=== PATIENT | female | born 1995 | race Caucasian/White ===

== ENCOUNTER 2017-08-19 11:50 | Outpatient (CLI) | payer MEDICAID, SELFPAY ==
[2017-08-19 12:08] VITALS: BMI 30.7
[2017-08-19] MEDS: Betamethasone/Betamethasone 30 MG/5 ML Vial 12 MG IM (12:25)
[2017-08-19] MEDS: Lactated Ringers 1,000 ML 200 ML IV (12:43)
[2017-08-19 13:00] LABS: Mucous, Urine 0 SEEN /hpf (<or=2+)
[2017-08-19 13:08] LABS: Hematocrit 31.4 % (37-47); Hemoglobin 10.3 g/dl (12.0-15.0); Mean Corp Hgb Conc 32.8 g/gl (32-36); Mean Corpuscular Hgb 28.9 pg (27.0-32.0); Mean Corpuscular Volume 88.2 fL (81-99); Mean Platelet Vol. 11.5 fl (6.2-12.0); Platelet Count 186 K/mm3 (150-450); RBC Distribution Width CV 13.2 % (11.6-14.6); RBC Distribution Width SD 42.7 fl (35.1-43.9); Red Blood Count 3.56 M/mm3 (4.2-5.4); White Blood Count 11.6 K/mm3 (4.4-11.0)
[2017-08-19 13:10] LABS: Color, Urine Straw (Yellow); Glucose, Dipstick Normal (Normal); Ketone-Dipstick Negative (Negative); Leukocyte Esterase-Dipstick 25 /ul (Negative); Nitrite-Dipstick Negative (Negative); Occult Blood-Urine Negative /ul (Negative); Protein-Dipstick 15 mg/dl (Negative); Specific Gravity, Urine 1.005 (1.002-1.030); Urine Bilirubin Dipstick Negative (Negative); Urine Clarity Sl. Cloudy (Clear); Urine Urobilinogen Normal (Normal)
[2017-08-19] MEDS: Magnesium Sulfate 20 GM/500 ML BAG IV (13:15)
[2017-08-19 13:19] LABS: Bacteria RARE /hpf (None Seen); Red Blood Cells-Urine 0-5 SEEN /hpf (0-5); Squamous Epithelial Cells - UA 0-5 SEEN /hpf (5-10); White Blood Cells 0-5 SEEN /hpf (0-5)
[2017-08-19 13:20] LABS: AST(SGOT) 69 U/L (15-37); Alanine Aminotransfer ALT/SGPT 49 U/L (13-56); Creatinine, Serum 0.63 mg/dL (0.55-1.02); EST Glomerular Filtration Rate 124 mL/min (>60); Est Glom Filt Rate - Afr Amer 150 mL/min (>60); Uric Acid 4.6 mg/dL (2.6-6.0)
[2017-08-19 13:23] LABS: Amphetamine Urine VISTA NEGATIVE (<1000 ng/mL); Barbiturate Urine VISTA NEGATIVE (< 200 ng/mL); Benzodiazepine Urine VISTA NEGATIVE (< 200 ng/mL); Cocaine Urine VISTA NEGATIVE (< 300 ng/mL); Ecstacy Urine VISTA NEGATIVE (< 500 ng/mL); Methadone Urine VISTA NEGATIVE (< 300 ng/mL); PCP Urine VISTA NEGATIVE (< 25 ng/mL); Protein:Creat Ratio 415 mg/g CRE (0-200); THC Urine VISTA NEGATIVE (< 50 ng/mL); Vista UDS pH Range 7
[2017-08-19 13:27] LABS: Scan Indicated on CBC? Y/N NO
[2017-08-19] MEDS: NIFEdipine 30 MG Tablet PO (14:21)
--- NOTE | 2017-08-19 14:38 | US_ITS ---
STUDY: SECOND AND THIRD TRIMESTER OBSTETRICAL ULTRASOUND - LIMITED REASON FOR EXAM: Female, 22 years old. growth LMP: PRIOR ULTRASOUND: 1.24.18. TECHNIQUE: Transabdominal ultrasound evaluation was performed. FINDINGS: There is a single intrauterine fetus. The fetus is in a cephalic presentation. There is demonstrated cardiac activity with a heart rate of 130 bpm. There is a normal amniotic fluid volume. The largest amniotic fluid pocket measures 3.9 cm. The amniotic fluid index (PRESLEY) is 12.8 cm. The placenta is posterior in location and is not low lying. There are Grade 3 placental changes. The cervix measures 4.3 cm in length. BIOMETRY: BPD: 86mm: 34 weeks, 4 days HC: 311mm: 34 weeks, 6 days AC: 300mm: 34 weeks, 0 days FL: 63mm: 32 weeks, 6 days Age by LMP: 33 weeks, 1 days. MOUSTAPHA by LMP: 4.1.18. age by prior US: 34 weeks, 0 days. MOUSTAPHA by prior US: 3.26.18. age by current US: 34 weeks, 1 days. MOUSTAPHA by current US: 3.25.18. Estimated weight: 2270 grams, +/- 331 grams, 61 percentile. US/OB Limited With Biometrics IMPRESSION: There is a single live intrauterine with a heart rate of 130 bpm. age by current US: 34 weeks, 1 days. MOUSTAPHA by current US: 3.25.18. anatomy scan was not performed. Electronically Signed: Farhat Lott MD at 16:21 EST , Service support ,
[2017-08-19 15:47] LABS: Group B Strep DNA By PCR POSITIVE (Negative); Probe Check PASS
--- NOTE | 2017-08-19 16:56 | PCM.HP.OB ---
- Problem List (1) Severe preeclampsia Status: Acute (2) Threatened labor Status: Acute (3) UTI in Status: Acute (4) Anemia in preg-unspec Status: Acute (5) History of pre-eclampsia in prior , currently Status: Acute Comment: baby ASA daily History Date of Admission: 08/19/17 Final MOUSTAPHA: 10/06/17 Gestational age: 33 Weeks and 1 Days History of this : 22 yo @ 33 weeks presetns with severely elevated blood pressures and upper abdominal pain. She has also had contractions throughout the day today. She has missed several visits and never took an antibiotic for a recent UTI. She denies any stds or drug use. she dneie sany headcahes or change in vision. Pertinent Past Medical History: preeclampsia, anxiety/depression PSH: none OB history reviewed previous vaginal deliveries preeclampsia labs: see lab section Allergies amoxicillin [Amoxicillin] Allergy (Verified 08/19/17 13:43) Hives cephalexin [Cephalexin] Allergy (Verified 08/19/17 13:43) Hives Penicillins Allergy (Verified 08/19/17 13:43) Hives Current Medications Calcium Gluconate () 1 gm IV X1 PRN PRN Reason: MAGNESIUM TOXICITY Hydralazine HCl (Apresoline) 10 mg IV X1 PRN; Protocol PRN Reason: BP>160/110mmHg Magnesium Sulfate (20gm/500ml) 20 gm in 500 mls @ 50 mls/hr IV .Q10H [facility] PRN Reason: 2 GM/HR Last Admin: 08/19/17 13:15 Dose: 50 mls/hr Gentamicin Sulfate 300 mg/ (Dextrose) 57.5 mls @ 100 mls/hr IVPB Q24H [facility] Last Admin: 08/19/17 14:47 Dose: 100 mls/hr Labetalol HCl (Trandate) 20 - 40 mg IV Q10M PRN PRN; Protocol PRN Reason: BP>160/110mmHg Last Admin: 08/19/17 12:43 Dose: 20 mg Magnesium Sulfate (4 Gm/100 Ml) 2 gm IV X1 PRN PRN Reason: SEIZURE Midazolam HCl (Versed) 2 mg IV Q5M PRN PRN Reason: SEIZURE Nifedipine (Procardia Xl) 30 mg PO DAILY [facility] Last Admin: 08/19/17 14:21 Dose: 30 mg Smoking Status: Current every day smoker Alcohol: None Drug Use: none Number of Fetus(es): 1 - 140s moderate variability reactive no decels toco q 2-3 minutes Review of Systems Constitutional: Denies: Chills, Fever, Weight Change HEENT: Denies: Head Aches, Sinus Congestion, Sinus Drainage Cardiovascular: Denies: Chest Pain, Palpitations Respiratory: Denies: Cough, Shortness of breath at rest, Sputum production Gastrointestinal: Reports: Abdominal Pain Genitourinary: Denies: Dysuria Gynecological: Denies: Vaginal bleeding, Vaginal discharge Neurological: Denies: Blurred vision, Double vision Physical Exam General: Alert, Oriented x3, No apparent distress Cardiovascular: Regular rate Lungs: Normal air movement Abdomen: Soft, Gravid, Appropriate for Gestational Age Extremities:: No edema, Deep tendon reflexes - 3+, Other - no clonus Estimated gestational size: Appropriate for gestational size Presentation: Cephalic Cervix Dilation (cm): 2.5 Station: -3 Effacement (%): 40 Assessment/Plan Active and Suspected Problems (Last Reviewed 07/24/17 @ 09:19 by Oneyda Jacobson) Severe preeclampsia (Acute) Threatened labor (Acute) 22 yo @33 weeks presents with severe preeclampsia 1. check preeclampsia labs- start magnesium and hypertensive protocol with labetalol. 2. threatened PTL- procardia XL 30 mg, no cervical change, urine gc chlamydia, gbs dna 3. prematurity- BMZ 4. untreated recent UTI- based on sensitivities give gentamicin IV. 5. noncompliant with care- urine tox screen
--- NOTE | 2017-08-19 17:03 | HP.PCM_ITS ---
- Problem List (1) Severe preeclampsia Status: Acute (2) Threatened labor Status: Acute (3) UTI in Status: Acute (4) Anemia in preg-unspec Status: Acute (5) History of pre-eclampsia in prior , currently Status: Acute Comment: baby ASA daily History Date of Admission: 08/19/17 Final MOUSTAPHA: 10/06/17 Gestational age: 33 Weeks and 1 Days History of this : 22 yo @ 33 weeks presetns with severely elevated blood pressures and upper abdominal pain. She has also had contractions throughout the day today. She has missed several visits and never took an antibiotic for a recent UTI. She denies any stds or drug use. she dneie sany headcahes or change in vision. Pertinent Past Medical History: preeclampsia, anxiety/depression PSH: none OB history reviewed previous vaginal deliveries preeclampsia labs: see lab section Allergies amoxicillin [Amoxicillin] Allergy (Verified 08/19/17 13:43) Hives cephalexin [Cephalexin] Allergy (Verified 08/19/17 13:43) Hives Penicillins Allergy (Verified 08/19/17 13:43) Hives Current Medications Calcium Gluconate () 1 gm IV X1 PRN PRN Reason: MAGNESIUM TOXICITY Hydralazine HCl (Apresoline) 10 mg IV X1 PRN; Protocol PRN Reason: BP>160/110mmHg Magnesium Sulfate (20gm/500ml) 20 gm in 500 mls @ 50 mls/hr IV .Q10H [facility] PRN Reason: 2 GM/HR Last Admin: 08/19/17 13:15 Dose: 50 mls/hr Gentamicin Sulfate 300 mg/ (Dextrose) 57.5 mls @ 100 mls/hr IVPB Q24H [facility] Last Admin: 08/19/17 14:47 Dose: 100 mls/hr Labetalol HCl (Trandate) 20 - 40 mg IV Q10M PRN PRN; Protocol PRN Reason: BP>160/110mmHg Last Admin: 08/19/17 12:43 Dose: 20 mg Magnesium Sulfate (4 Gm/100 Ml) 2 gm IV X1 PRN PRN Reason: SEIZURE Midazolam HCl (Versed) 2 mg IV Q5M PRN PRN Reason: SEIZURE Nifedipine (Procardia Xl) 30 mg PO DAILY [facility] Last Admin: 08/19/17 14:21 Dose: 30 mg Smoking Status: Current every day smoker Alcohol: None Drug Use: none Number of Fetus(es): 1 - 140s moderate variability reactive no decels toco q 2- 3 minutes Review of Systems Constitutional: Denies: Chills, Fever, Weight Change HEENT: Denies: Head Aches, Sinus Congestion, Sinus Drainage Cardiovascular: Denies: Chest Pain, Palpitations Respiratory: Denies: Cough, Shortness of breath at rest, Sputum production Gastrointestinal: Reports: Abdominal Pain Genitourinary: Denies: Dysuria Gynecological: Denies: Vaginal bleeding, Vaginal discharge Neurological: Denies: Blurred vision, Double vision Physical Exam General: Alert, Oriented x3, No apparent distress Cardiovascular: Regular rate Lungs: Normal air movement Abdomen: Soft, Gravid, Appropriate for Gestational Age Extremities:: No edema, Deep tendon reflexes - 3+, Other - no clonus Estimated gestational size: Appropriate for gestational size Presentation: Cephalic Cervix Dilation (cm): 2.5 Station: -3 Effacement (%): 40 Assessment/Plan Active and Suspected Problems (Last Reviewed 07/24/17 @ 09:19 by Oneyda Jacobson) Severe preeclampsia (Acute) Threatened labor (Acute) 22 yo @33 weeks presents with severe preeclampsia 1. check preeclampsia labs- start magnesium and hypertensive protocol with labetalol. 2. threatened PTL- procardia XL 30 mg, no cervical change, urine gc chlamydia, gbs dna 3. prematurity- BMZ 4. untreated recent UTI- based on sensitivities give gentamicin IV. 5. noncompliant with care- urine tox screen
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
[2017-08-19 17:21] LABS: Chlamydia Trachomatis by PCR Negative (Negative); Neisserai gonorrhoeae by PCR Negative (Negative); Probe Check PASS; Sample Adequacy Control PASS; Specimen Processing Control PASS
[2017-08-19 17:30] LABS: Red Blood Count 3.88 M/mm3 (4.2-5.4); White Blood Count 15.2 K/mm3 (4.4-11.0)
[2017-08-19 17:31] LABS: Hematocrit 34.2 % (37-47); Hemoglobin 11.2 g/dl (12.0-15.0); Mean Corp Hgb Conc 32.7 g/gl (32-36); Mean Corpuscular Hgb 28.9 pg (27.0-32.0); Mean Corpuscular Volume 88.1 fL (81-99); Platelet Count 174 K/mm3 (150-450); RBC Distribution Width CV 13.5 % (11.6-14.6); RBC Distribution Width SD 42.9 fl (35.1-43.9); Scan Indicated on CBC? Y/N NO
[2017-08-19 18:06] LABS: ALB/GLOB Ratio 0.5 RATIO (0.9-2.4); AST(SGOT) 90 U/L (15-37); Alanine Aminotransfer ALT/SGPT 62 U/L (13-56); Albumin, Serum 2.7 g/dL (3.2-5.0); Alkaline Phosphatase 157 U/L (45-117); Anion Gap 13 (5-15); BUN 8 mg/dL (7-18); BUN/Creat Ratio 12.4 RATIO (10-20); Calcium,Total 7.8 mg/dL (8.5-10.1); Chloride 104 mmol/L (98-107); Creatinine, Serum 0.64 mg/dL (0.55-1.02); EST Glomerular Filtration Rate 120 mL/min (>60); Est Glom Filt Rate - Afr Amer 145 mL/min (>60); Estimated Creatinine Clearance 126.89 ml/min; Glucose 70 mg/dL (74-106); Protein, Total 7.7 g/dL (6.4-8.2); Sodium Level 136 mmol/L (136-145)
--- NOTE | 2017-08-19 18:37 | PCM.PN.BLA ---
Progress Note repeat liver enzymes still elevated- patient in HELLP syndrome recommend immediate transport and will likely plan for delivery. discussed with MFM and will transport to [facility]. FHTs 130s moderate variability reactive no decels. toco no regular ctx. 2-/-2 urine tox screen negative
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
== END 2017-08-19 19:05 | disposition short-term general hospital (02) ==
LOC: WPOUT 11:54 → WP 11:55
PROVIDERS: Visit Provider Obstetrics & Gynecology
DX: O14.23 HELLP syndrome (HELLP), third trimester (principal); O60.03 Preterm labor without delivery, third trimester; O23.43 Unspecified infection of urinary tract in pregnancy, third trimester; O99.013 Anemia complicating pregnancy, third trimester; D64.9 Anemia, unspecified; O09.33 Supervision of pregnancy with insufficient antenatal care, third trimester; O26.893 Other specified pregnancy related conditions, third trimester; R10.10 Upper abdominal pain, unspecified; O99.333 Smoking (tobacco) complicating pregnancy, third trimester; F17.200 Nicotine dependence, unspecified, uncomplicated; O99.343 Other mental disorders complicating pregnancy, third trimester; F32.9 Major depressive disorder, single episode, unspecified; F41.9 Anxiety disorder, unspecified; Z87.59 Personal history of other complications of pregnancy, childbirth and the puerperium; Z3A.33 33 weeks gestation of pregnancy
CPT/HCPCS: 96365; 96366 ×5; 96367; 96375; 36415; 59025; 59050; 76816; 80053; 80307; 81001; 82565; 82570; 84156; 84450; 84460; 84550; 85027; 86850; 86900; 87086; 87088; 87491; 87591; 87653; 96372; 99218; J7120; G0378; J0702

== ENCOUNTER → 2017-10-08 15:06 | Outpatient (CLI) | payer MEDICAID, SELFPAY ==
[2017-10-13 13:23] LABS: HPV Reflexed? NOT INDICATED
== END ==
PROVIDERS: Visit Provider Obstetrics & Gynecology
DX: Z12.4 Encounter for screening for malignant neoplasm of cervix (principal)
CPT/HCPCS: 88175; G0145

== ENCOUNTER 2019-02-02 17:17 | Emergency (ER) | payer MEDICAID, SELFPAY ==
[2019-02-02 17:19] VITALS: BP 127/71; PULSE 87; RESP 18; TEMP 37.1; O2SAT 99; BMI 30.7
[2019-02-02 17:40] VITALS: TEMP 37.4
--- NOTE | 2019-02-02 17:57 | ED.VISSUMM ---
- ER Visit Summary Date of Service: 02/02/19 Chief Complaint: Right flank and abdominal pain History of Present Illness: The patient is a 23 F as male history of anemia, asthma and depression anxiety. Patient states since yesterday morning she has had right Sided flank and abdominal pain. Associated nausea and vomiting. No fever. No chills. No vaginal bleeding or discharge. She has a Mirena IUD. Her last menstrual period was 2 months ago. She denies any UTI symptoms but says she is felt like this before with a UTI. She denies dysuria, urgency or frequency. No gross hematuria. She denies any abdominal trauma. She is never had any surgeries of any type. Physical Examination: 23-year-old female no acute distress. Vital signs are stable afebrile. HEENT exam unremarkable. Neck nontender. Lungs clear to auscultation bilaterally. Heart regular rhythm no murmur. Abdomen is soft. She has mild right upper right lower quadrant tenderness. Not specifically McBurney's point tenderness nor a Griffith sign. Abdomen is nondistended with normal bowel sounds. No signs of obstruction. Left upper left lower quadrant unremarkable. She is moving all 4 extremities. Neurovascularly intact. Calves are nontender without edema or cords. Neurologically she is awake and alert. Skin is unremarkable. She has back discomfort in the right side but not CVA tenderness or any reproducible tenderness. Test Results: CBC shows a white count of 13. Hemoglobin 13. No bands. Chemistries unremarkable normal creatinine gap. Liver enzymes normal. Serum test negative. UA consistent with UTI with positive nitrates, greater than 100 white blood cells and 1+ bacteria. Culture was sent. Emergency Department Course and Treatment: I asked patient if she want anything for pain or nausea she only requested Tylenol. Screening labs and urinalysis will be obtained. Repeat exam at 2000 p.m. she is doing well. Does not waiting for pain. She will be given a dose of Macrobid prior to discharge. She allergies to penicillin and Keflex which caused her hives. For that reason I am choosing Macrobid. A urine culture will be sent. Her repeat abdominal exam is benign and do not feel that she needs any imaging or history and exam are consistent with a UTI. Treatment Plan: Macrobid twice daily for 10 days. Urine culture sent. Follow-up with Dr. Lopez as needed. Disposition: Discharge Impression: Acute right flank and abdominal pain secondary to UTI This note was generated with [employer] dictation software. It may contain incorrect words, spelling, and punctuation that were not noted in review of the chart prior to signing ED Disposition - Plan for ED Patient: Referrals: Care Physician,No Primary [Primary Care Provider] -
[2019-02-02 18:08] LABS: Mucous, Urine 0 SEEN /hpf (<or=2+)
[2019-02-02 18:11] LABS: Absolute Lymphocyte Count 1.04 X10^3/uL (0.83-4.51); Absolute Neutrophil Count 10.7 X10^3/uL (2.0-7.7); Basophil# 0.07 X10^3/uL; Basophil% 0.5 % (0-1); Eosinophil# 0.15 X10^3/uL; Eosinophils% 1.1 % (0-5); Hematocrit 39.4 % (37-47); Lymphocyte # 1.04 X10^3/ul (4.0); Mean Corpuscular Hgb 28.9 pg (27.0-32.0); Mean Corpuscular Volume 87.6 fL (81-99); Mean Platelet Vol. 9.8 fl (6.2-12.0); Monocyte# 1.01 X10^3/uL; Monocyte% 7.7 % (0-10); NRBC Flagged by Analyzer 0 % (0-5); Neutrophil # 10.74 X10^3/uL (2.7-7.7); Neutrophil % 82.3 % (47-70); Platelet Count 274 K/mm3 (150-450); RBC Distribution Width CV 13.7 % (11.6-14.6); RBC Distribution Width SD 43.8 fl (35.1-43.9); White Blood Count 13.1 K/mm3 (4.4-11.0)
[2019-02-02] MEDS: Acetaminophen 500 MG Tablet 1000 MG PO (18:13)
[2019-02-02 18:24] LABS: Internal QC Validated? YES +Cl - CLEAR BKGD; Pregnancy, Serum, hCG Quali. NEGATIVE Negative
[2019-02-02 18:27] LABS: Color, Urine Yellow (Yellow); Glucose, Dipstick Normal (Normal); Ketone-Dipstick 50 mg/dl (Negative); Leukocyte Esterase-Dipstick 500 /ul (Negative); Nitrite-Dipstick Positive (Negative); Occult Blood-Urine 50 /ul (Negative); Protein-Dipstick 100 mg/dl (Negative); Urine Bilirubin Dipstick Negative (Negative); Urine Clarity Cloudy (Clear); Urine Urobilinogen Normal (Normal)
[2019-02-02 18:28] LABS: Squamous Epithelial Cells - UA 5-10 SEEN /hpf (5-10)
[2019-02-02 18:29] LABS: Bacteria 1+ /hpf (None Seen); Red Blood Cells-Urine 0-5 SEEN /hpf (0-5); White Blood Cells >100 SEEN /hpf (0-5)
[2019-02-02 18:29] LABS: AST(SGOT) 9 U/L (15-37); Alanine Aminotransfer ALT/SGPT 14 U/L (13-56); Albumin, Serum 3.8 g/dL (3.2-5.0); Alkaline Phosphatase 82 U/L (45-117); Anion Gap 9 (5-15); BUN 11 mg/dL (7-18); Bilirubin, Direct 0.12 mg/dL (0.00-0.30); Calcium,Total 8.6 mg/dL (8.5-10.1); Chloride 101 mmol/L (98-107); Creatinine, Serum 0.91 mg/dL (0.55-1.02); EST Glomerular Filtration Rate 79 mL/min (>60); Est Glom Filt Rate - Afr Amer 96 mL/min (>60); Estimated Creatinine Clearance 88.47 ml/min; Globulin 4.3 g/dL (2.2-4.2); Glucose 151 mg/dL (74-106); Potassium 3.4 mmol/L (3.5-5.1); Protein, Total 8.1 g/dL (6.4-8.2); Sodium Level 136 mmol/L (136-145)
--- NOTE | 2019-02-02 20:02 | ED.DEP ---
ED Disposition - Plan for ED Patient: Disposition: Home or Assisted Living Instructions: Urinary Tract Infections in Women Prescriptions: Nitrofurantoin Monohyd/M-Cryst [Macrobid 100 mg Capsule] 100 mg PO BID #20 cap Prescription Printed Ondansetron [Zofran Odt] 4 mg PO Q8H PRN PRN #7 tab PRN Reason: zofran Prescription Printed Referrals: Colby Lopez MD [STAFF PHYSICIAN] - 3-5 Days Additional Instructions: Plenty of fluids and rest. Tylenol Motrin for pain. Zofran for nausea as needed. Macrobid 1 pill twice a day tract infection. A urine culture was sent. Follow-up with a local physician. Return to ER feeling worse.
[2019-02-02] MEDS: Nitrofurantoin Macrocrystals 100 MG Capsule PO (20:12)
[2019-02-02 20:13] VITALS: BP 121/83; PULSE 83; RESP 14; O2SAT 97
== END 2019-02-02 20:18 | disposition home or self-care (01) ==
PROVIDERS: Emergency Provider Emergency Medicine
DX: N39.0 Urinary tract infection, site not specified (principal); D64.9 Anemia, unspecified; F32.9 Major depressive disorder, single episode, unspecified; F41.9 Anxiety disorder, unspecified; Z97.5 Presence of (intrauterine) contraceptive device
CPT/HCPCS: 80048; 80076; 81001; 84703; 85025; 87077; 87086; 87088; 87186; 99283

== ENCOUNTER → 2019-08-13 08:31 | Outpatient (CLI) | payer OTHER, SELFPAY ==
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
== END ==
PROVIDERS: Referring Provider Obstetrics & Gynecology; Visit Provider Obstetrics & Gynecology
DX: Z30.430 Encounter for insertion of intrauterine contraceptive device (principal)
CPT/HCPCS: 76830; 76856; 93976

== ENCOUNTER → 2019-10-08 11:58 | Outpatient (CLI) | payer OTHER, SELFPAY ==
[2019-10-08 11:30] VITALS: BMI 30.7
[2019-10-08 12:43] LABS: Absolute Lymphocyte Count 2.28 X10^3/uL (0.83-4.51); Absolute Neutrophil Count 3.6 X10^3/uL (2.0-7.7); Basophil# 0.12 X10^3/uL; Basophil% 1.8 % (0-1); Eosinophil# 0.14 X10^3/uL; Eosinophils% 2.1 % (0-5); Hematocrit 41.4 % (37-47); Hemoglobin 13.5 g/dL (12.0-15.0); Lymphocyte # 2.28 X10^3/ul (4.0); Lymphocyte % 33.7 % (19-41); Mean Corp Hgb Conc 32.6 g/dL (32-36); Mean Corpuscular Hgb 29.4 pg (27.0-32.0); Mean Corpuscular Volume 90.2 fL (81-99); Mean Platelet Vol. 9.5 fl (6.2-12.0); Monocyte# 0.59 X10^3/uL; Monocyte% 8.7 % (0-10); NRBC Flagged by Analyzer 0 % (0-5); Neutrophil # 3.62 X10^3/uL (2.7-7.7); Neutrophil % 53.4 % (47-70); Platelet Count 400 K/mm3 (150-450); RBC Distribution Width CV 12.5 % (11.6-14.6); RBC Distribution Width SD 41.4 fl (35.1-43.9); Red Blood Count 4.59 M/mm3 (4.2-5.4); White Blood Count 6.8 K/mm3 (4.4-11.0)
[2019-10-08 13:23] LABS: Thyroid Stim Hormone (TSH) 1.97 uIU/mL (0.358-3.74)
[2019-10-08 13:43] LABS: HIV - WCH Non-Reactive (Nonreactive)
[2019-10-08 19:35] LABS: Chlamydia Trachomatis by PCR Negative (Negative); Neisserai gonorrhoeae by PCR Negative (Negative); Probe Check PASS; Sample Adequacy Control PASS; Specimen Processing Control PASS
[2019-10-15 01:55] LABS: Rapid Plasmin Reagin (RPR) NONREACTIVE (NONREACTIVE)
[2019-10-15 20:06] LABS: HCV Quant. RNA PCR HCV Not Detected IU/mL (.)
== END ==
PROVIDERS: Referring Provider Obstetrics & Gynecology; Visit Provider Obstetrics & Gynecology
DX: Z11.3 Encounter for screening for infections with a predominantly sexual mode of transmission (principal); N92.6 Irregular menstruation, unspecified; N89.8 Other specified noninflammatory disorders of vagina
CPT/HCPCS: 36415; 84443; 85025; 86592; 86695; 86696; 86703; 87070; 87077; 87205; 87491; 87522; 87591

== ENCOUNTER → 2020-08-17 15:08 | Outpatient (CLI) | payer MEDICAID, SELFPAY ==
[2020-08-17 14:32] VITALS: BMI 31.3
[2020-08-17 16:34] LABS: HIV - WCH Non-Reactive (Nonreactive)
[2020-08-17 19:39] LABS: Chlamydia Trachomatis by PCR Negative (Negative); Neisserai gonorrhoeae by PCR Negative (Negative); Probe Check PASS; Sample Adequacy Control PASS; Specimen Processing Control PASS
[2020-08-18 01:42] LABS: Rapid Plasmin Reagin (RPR) NONREACTIVE (NONREACTIVE)
[2020-08-20 03:07] LABS: HCV Quant. RNA PCR HCV Not Detected IU/mL (.)
[2020-08-23 14:46] LABS: HPV Reflexed? NOT INDICATED
== END ==
PROVIDERS: Referring Provider Nurse Practitioner Women's Health; Visit Provider Nurse Practitioner Women's Health
DX: Z12.4 Encounter for screening for malignant neoplasm of cervix (principal); Z11.3 Encounter for screening for infections with a predominantly sexual mode of transmission
CPT/HCPCS: 36415; 86592; 86703; 87491; 87522; 87591; 88175; G0145

== ENCOUNTER 2021-01-13 18:56 | Emergency (ER) | payer MEDICAID, SELFPAY ==
[2021-01-13 18:56] VITALS: BP 135/74; PULSE 75; RESP 16; TEMP 36.2; O2SAT 99; BMI 32.3
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
[2021-01-13 21:05] VITALS: BP 124/70; PULSE 68; RESP 18; O2SAT 99
== END 2021-01-13 21:05 | disposition home or self-care (01) ==
PROVIDERS: Emergency Provider Emergency Medicine
DX: S06.0X0A Concussion without loss of consciousness, initial encounter (principal); S05.12XA Contusion of eyeball and orbital tissues, left eye, initial encounter; S40.012A Contusion of left shoulder, initial encounter; E66.9 Obesity, unspecified; Y00.XXXA Assault by blunt object, initial encounter
CPT/HCPCS: 99282

== ENCOUNTER → 2021-03-15 | Outpatient (CLI) | payer MEDICAID, SELFPAY ==
[2021-03-21 03:07] LABS: Chlamydia By Nucleic Acid AMP Positive (Negative)
[2021-03-21 08:03] LABS: Gonococcus By Nucleic Acid AMP Negative (Negative)
== END | disposition home or self-care (01) ==
LOC: LABSPEC 15:28
PROVIDERS: Referring Provider Nurse Practitioner Women's Health; Visit Provider Nurse Practitioner Women's Health
DX: Z11.3 Encounter for screening for infections with a predominantly sexual mode of transmission (principal); N76.0 Acute vaginitis
CPT/HCPCS: 87070; 87077; 87205; 87491; 87591

== ENCOUNTER 2021-09-05 20:00 | Emergency (ER) | payer MEDICAID, SELFPAY ==
[2021-09-05 20:01] VITALS: BP 157/102; PULSE 102; RESP 18; TEMP 36.3; O2SAT 100; BMI 31.1
[2021-09-05] MEDS: Naproxen 250 MG Tablet 500 MG PO (20:16)
--- NOTE | 2021-09-05 20:17 | EDS_ITS ---
HPI History of Present Illness Chief Complaint: Chest Other Detail of Chief Complaint: Left sided rib cage pain status post fall Informant: patient Onset/Context/Timing Onset: Days Mechanism/Context: Blunt Injury and Fall Location: Left lower ribs over ribs 9 through 11 mid axillary to posterior midclavicu Current Severity: Mild Maximum Severity: Severe Worsened by: Certain movements, breathing and palpation Relieved by: Remaining still Associated Symptoms Associated Symptoms: Negative for Parasthesias, Weakness, Loss of function, Inability to ambulate, Loss of consciousness and Amnesia Narrative Narrative: Patient fell onto her left side approximate 1 week ago. She presents because of persistent pain and the pain coming abruptly worse yesterday. She states it hurts to do minimal activity or turning or twisting she denies shortness of breath. She states it does not hurt to breathe. She has not noted any change in the color of urine or blood in her urine. She denies pain referred to her left shoulder or trapezius area. She denies abdominal pain. She denies head trauma. She denies ringing in ears decreased hearing change in vision. She denies neck pain. She denies paresthesia, anesthesia or motor weakness. She is not on an anticoagulant. Tetanus Immunization: 5-10 years Prior similar symptoms: No Recent Illness/Hospitalization: No [facility] Medical History (Updated 09/05/21 @ 20:[address] Elan Rai MD) Anxiety and depression Asthma Home Medications duloxetine 60 mg capsule,delayed release 120 mg PO DAILY cap 08/17/20 [History Last Taken Unknown] norelgestromin 150 mcg-e.estradiol 35 mcg/24 hr weekly transderm patch 1 patch TRANSDERMAL Q7D #3 ea 03/15/21 [Rx Last Taken Unknown] azithromycin 500 mg tablet 500 mg PO ONCE #2 tab 03/23/21 [Rx Last Taken Unknown] minocycline 100 mg tablet 100 mg PO DAILY #14 tab 03/23/21 [Rx Last Taken Unknown] hydrocodone-acetaminophen 1 tab PO Q6H PRN PRN 3 Days #10 tablet 09/05/21 [Rx Last Taken Unknown] naproxen 500 mg PO BID #14 tab 09/05/21 [Rx Last Taken Unknown] Allergy/AdvReac Type Severity Reaction Status Date / Time amoxicillin [Amoxicillin] Allergy Hives Verified 09/05/21 20:03 cephalexin [Cephalexin] Allergy Hives Verified 09/05/21 20:03 Penicillins Allergy Hives Verified 09/05/21 20:03 Social History household members: significant other Smoking Status: Never smoker alcohol intake: never substance use type: does not use caffeine: Yes frequency: 1-2 times per week seatbelt use: always do you feel safe at home: Yes additional social history: Boyfriend ROS ROS ED Constitutional Constitutional ED: Denies chills, fever(s), subjective, sweats or weight loss Eyes Eyes: Denies blurry vision or change in vision ENT ENT ED: Denies ear pain, rhinorrhea or sore throat Cardiovascular Cardiovascular: Reports chest pain; Denies palpitations, paroxysmal nocturnal dyspnea or racing heartbeat Respiratory/Chest Respiratory/Chest: Denies cough, dyspnea, dyspnea on exertion, paroxysmal nocturnal dyspnea or sputum Gastrointestinal Gastrointestinal: Denies abdominal pain, nausea or vomiting Genitourinary Genitourinary ED: Denies hematuria Musculoskeletal Musculoskeletal: Reports back pain; Denies arthralgias, myalgias or neck pain Integumentary Denies Abrasions or rash Neurologic Neurologic: Denies headache(s), paresthesias or weakness Hematologic/Lymphatic Hematologic/Lymphatic: Denies easy bleeding or easy bruising EXAM Physical Exam Const Vital Signs: 09/05/21 20:01 09/05/21 20:09 Temperature 97.3 F L Temperature Source Temporal Pulse Rate 102 H Respiratory Rate 18 Respiratory Effort Normal Non-Labored Respiratory Pattern Normal Blood Pressure 157/102 H Blood Pressure Mean 120 Pulse Ox 100 Oxygen Delivery Method Room Air Positive well nourished, well developed and obese General Appearance ED: well developed; Negative for NAD Nutritional Appearance: obese HEENT Reports TM's clear HEENT Narrative: No evidence of head trauma. No clinical signs of basilar skull fracture. atraumatic; Negative for tenderness Nose: Negative for septum abnormal Tympanic Membrane ED: Yes TM's clear Eyes PERRL and EOMs intact bilaterally General Eye ED: Yes other Other Details: No subconjunctival hemorrhage. Neck full ROM General: Negative for tenderness Resp normal respiratory effort and clear to auscultation bilaterally Resp Narrative: There is pain no patient mid axillary line to posterior midclavicular line ribs 9, 10, and 11. There is no crepitus. Cardio regular rhythm, S1 normal heart sound, S2 normal heart sound and no murmurs Rate: regular rate GI normal to inspection, nondistended, normoactive bowel sounds, non-tender and non-distended GI Narrative: There is specifically no tenderness in the left upper quadrant. Palpation: soft Back/Spine normal to inspection; Negative for no thoracic nor lumbar tenderness Back/Spine Narrative: There is pain palpation medial of the left scapula. General Back: Negative for CVA tenderness Thoracic Spine / Upper Back: Negative for thoracic spinal tenderness Extremity normal to inspection and full ROM Neuro oriented x3, CN's II-XII intact bilaterally and no sensory deficits noted Marlen Coma Scale: document GCS findings Spontaneous Obeys Commands Oriented 15 Sensorium / Orientation: alert Motor Exam: strength 5/5 throughout Psych mental status grossly normal and thought process normal Skin no rashes or lesions noted, no wounds and no jaundice MDM MDM MDM Narrative Medical decision making narrative: Since patient has tenderness over the lower ribs if there is a fracture we will need to consider splenic injury. X-ray was obtained. When she drove she was medicated with NSAIDs and she has no contraindication. Radiography Diagnostic Testing: A total of 5 views were taken of the ribs left side. This include a PA of the chest and by 4 views of the ribs. There is no evidence of pneumothorax, hemothorax or fractured ribs. There is no evidence of pneumomediastinum. X-ray were interpreted by me at 2031 Discharge Plan Triage Chief Complaint: Chest Other ED Provider: Elan Rai Dx/Rx/DC Orders Clinical Impression: Contusion of ribs Prescriptions: New hydrocodone-acetaminophen [hydrocodone-acetaminophen] 1 TABLET tablet 1 tab PO Q6H PRN PRN (Reason: Pain) 3 Days Qty: 10 RF: 0 naproxen 500 MG tablet 500 mg PO BID Qty: 14 RF: 0 No Action duloxetine [Cymbalta] 60 mg capsule,delayed release(DR/EC) 120 mg PO DAILY RF: 0 Xulane 150-35 mcg/24 hr patch weekly 1 patch transdermal Q7D Qty: 3 RF: 2 azithromycin 500 mg tablet 500 mg PO ONCE Qty: 2 RF: 0 minocycline 100 mg tablet 100 mg PO DAILY Qty: 14 RF: 0 Primary Care Provider: Care Physician,No Primary Referrals: Care Physician,No Primary [Primary Care Provider] - Doctor,Your [STAFF PHYSICIAN] - 1 Week if not improving Activity Restrictions/Additional Instructions: Apply ice to areas of discomfort 6 times to 8 times a day If you are still having pain after a week follow-up with your primary care provider, The name of your doctor is located on your insurance card issued to you by care source Disposition Disposition: Home, Self Care
--- NOTE | 2021-09-05 20:20 | RAD_ITS ---
EXAM: XR LEFT RIBS AND AP CHEST, 3 OR MORE VIEWS CLINICAL INDICATION: Persistent pain status post fall x1 week -- 10, 11 and 12 TECHNIQUE: Frontal and oblique views of the left ribs and frontal view of the chest. This report was created using [employer] report generation technology. COMPARISON: None. FINDINGS: LUNGS AND PLEURAL SPACES: Unremarkable. No consolidation or edema. No pneumothorax. No effusion. HEART: Unremarkable. Cardiac silhouette not enlarged. MEDIASTINUM: Central airways and mediastinal contour are unremarkable. BONES/JOINTS: Unremarkable. No evidence of displaced rib fractures. RAD/Ribs Uni Min 3V w/PA Chest IMPRESSION: Negative chest and left ribs series. Electronically Signed: Farhat Lott MD at 20:41 EST ,
== END 2021-09-05 20:49 | disposition home or self-care (01) ==
PROVIDERS: Emergency Provider Emergency Medicine; Visit Provider Emergency Medicine
DX: S20.212A Contusion of left front wall of thorax, initial encounter (principal); W19.XXXA Unspecified fall, initial encounter; E66.9 Obesity, unspecified; Z68.30 Body mass index [BMI] 30.0-30.9, adult
CPT/HCPCS: 71101; 99282

== ENCOUNTER 2021-09-21 09:07 | Outpatient (CLI) | payer MEDICAID, SELFPAY ==
--- NOTE | 2021-09-21 09:09 | US_ITS ---
INDICATION: dating EXAMINATION: Ultrasound US OB Transvaginal TECHNIQUE: Transabdominal and transvaginal (for optimal evaluation of the adnexa) pelvic ultrasound was performed. Grayscale, spectral waveform, and color flow Doppler evaluation of the adnexa. COMPARISON: None. LMP: [03/31/2022 Beta-hCG: Unknown FINDINGS: UTERUS: 9.4 x 7.0 x 5.0 cm. No masses. Cervix is closed. Single gestational sac as detailed below. RIGHT OVARY: 2.6 x 1.6 x 1.2 cm. Normal. No right adnexal mass. LEFT OVARY: 3.8 x 2.1 x 1.8 cm. Normal. No left adnexal mass. FREE FLUID: None. INTRAUTERINE GESTATIONAL SAC(s) (size/shape): Single. 0.4 cm.. YOLK SAC: Not identified POLE: Not identified. ESTIMATED GESTATION AGE: 5 weeks 0 days. HEART MOTION: Not applicable. PLACENTA: Not visualized due to age. SUBCHORIONIC HEMORRHAGE: None. AMNIOTIC FLUID: Not measured. US/Transvaginal w/Preg US IMPRESSION: Single gestational sac with no yolk sac, placenta, or embryo at this time. Estimated gestational age by ultrasound is 5 weeks 0 days. Although these findings are favored to relate to early , estimated age based on provided LMP is 12 weeks 5 days. Correlation with beta hCG and follow-up ultrasound is recommended. Electronically Signed: Brandon Slaughter, at 11:11 EDT ,
[2021-09-21 19:20] LABS: hCG Titer Quant., Serum 831 mIU/mL (1-3)
== END 2021-09-21 23:59 | disposition home or self-care (01) ==
LOC: OPUS 09:07 → LAB 17:39
PROVIDERS: Visit Provider Obstetrics & Gynecology
DX: O36.80X0 Pregnancy with inconclusive fetal viability, not applicable or unspecified (principal); Z3A.00 Weeks of gestation of pregnancy not specified
CPT/HCPCS: 36415; 76817; 84702

== ENCOUNTER 2021-09-26 17:26 | Outpatient (CLI) | payer MEDICAID, SELFPAY ==
[2021-09-26 19:06] LABS: hCG Titer Quant., Serum 2873 mIU/mL (1-3)
== END 2021-09-26 23:59 | disposition home or self-care (01) ==
LOC: LAB 17:28
PROVIDERS: Nurse Practitioner Women's Health; Referring Provider Obstetrics & Gynecology; Visit Provider Obstetrics & Gynecology
DX: O20.0 Threatened abortion (principal); Z3A.00 Weeks of gestation of pregnancy not specified
CPT/HCPCS: 36415; 84702

== ENCOUNTER 2021-09-28 09:23 | Outpatient (CLI) | payer MEDICAID, SELFPAY ==
[2021-09-28 11:58] LABS: hCG Titer Quant., Serum 3856 mIU/mL (1-3)
== END 2021-09-28 23:59 | disposition home or self-care (01) ==
LOC: LAB 09:24
PROVIDERS: Referring Provider Nurse Practitioner Women's Health; Visit Provider Nurse Practitioner Women's Health
DX: O20.0 Threatened abortion (principal); Z3A.00 Weeks of gestation of pregnancy not specified
CPT/HCPCS: 36415; 84702

== ENCOUNTER 2021-09-29 11:31 | Outpatient (CLI) | payer MEDICAID, SELFPAY ==
--- NOTE | 2021-09-29 11:33 | US_ITS ---
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 TECHNIQUE: Transvaginal TECHNICAL QUALITY: Adequate. PRIOR ULTRASOUND: Comparison is made with prior study dated 09/21/2021. FINDINGS: There is visualization of a single gestational sac in a normal intrauterine position. There is no demonstrated yolk sac. The placenta is non-visualized. There is no demonstrated embryo ( pole). The estimated gestation age (EGA) by LMP is 13 weeks, 6 days. The estimated date of delivery (MOUSTAPHA) by LMP is 03/31/2022. The uterus measures 8.6 x 6.9 cm x 4.2 cm. There is no demonstrated uterine fibroid. The cervix is closed. A small amount of fluid is seen within the endometrium measuring 1.2 cm x 1.2 cm x 0.6 cm. The right ovary measures 3.7 cm x 2.5 cm x 1.4 cm. There is no right ovarian cyst. There is no visualized right adnexal mass or complex lesion. The left ovary measures 3.5 cm x 2.7 cm x 1.8 cm.. There is a 1.6 cm x 1.5 cm x 1 cm follicle in the left ovary. There is no visualized left adnexal mass or complex lesion. There is no fluid in the cul de sac. US/Transvaginal w/Preg US IMPRESSION: Intrauterine gestational sac. No evidence of pole or yolk sac. Correlation with the beta hCG is recommended. Electronically Signed: Cortez Li MD at 13:38 EDT ,
== END 2021-09-29 23:59 | disposition home or self-care (01) ==
LOC: US 11:32
PROVIDERS: Referring Provider Obstetrics & Gynecology; Visit Provider Obstetrics & Gynecology
DX: O20.0 Threatened abortion (principal)
CPT/HCPCS: 76817

== ENCOUNTER 2021-10-02 10:31 | Day surgery (SDC) | payer MEDICAID, SELFPAY ==
[2021-10-02] VITALS (11 sets, daily range): BP systolic 98–136; BP diastolic 59–87; PULSE 65–86; RESP 16–18; TEMP 36.5–37.6; O2SAT 98–100; BMI 30.9
--- NOTE | 2021-10-02 | POC_PTH ---
PATIENT: CLAYTON RATLIFF LOC: [facility] U#:[id number] AGE/SX: ROOM: RE10/02/[address]: Dr. Laura Powers MD : 1995 BED: DIS: 10/02/2021 SPEC #: [id number] RECD: 10/02/21 13:44 STATUS: BRIAN REJaquelin #: [id number] SHERLEY: 10/02/21 00:[address]: Laura Powers DEPT: SURGICAL PATHOLOGY RECD BY: Keith Garcia ENTERED: 10/02/21 13:44 SP TYPE: PROD CONC OTHR DR: No Primary Care Phys Tissues: Product of conception, NOS Procedures: Surgery Specimen Level IV HEADER OPERATION: Suction dilation and curettage PRE-OP DIAGNOSIS: Incomplete TISSUE SUBMITTED: demise, products of conception MICROSCOPIC DIAGNOSIS Endometrium, curettage: Rare chorionic villi, decidualized stroma and trophoblastic cells consistent with products of conception. AM:anh 10/03/2021 COMMENT The results of Anora study will be reported as an addendum. MICROSCOPIC DESCRIPTION Slides are reviewed. GROSS DESCRIPTION Received for Anora study is one container labeled with the patient's name and designated demise. The specimen consists of multiple irregular fragments of marx-pink soft tissue that in aggregate measure 5 x 4 x 0.5 cm. A portion of tissue is submitted for Anora study. No tissue is identified. The entire specimen is submitted in three cassettes. / SJ:anh 10/02/2021 TC:5 CPT: 20968 ADDENDUM ADDENDUM ADDENDUM ADDENDUM ADDENDUM ADDENDUM ADDENDUM ADDENDUM ADDENDUM ADDENDUM ADDENDUM 10/11/2021 09:32 ADDENDUM 10/11/2021 09:32 ADDENDUM 10/11/2021 09:32 ADDENDUM 10/11/2021 09:32 ADDENDUM 10/11/2021 09:32 ANORA MICROARRAY CHROMOSOME ANALYSIS WITH PARENTAL SUPPORT RESULT: Maternal cell contamination. MICROARRAY RESULT: n/a CLINICAL INTERPRETATION: Maternal cell contamination (MCFP) was detected. Insufficient DNA detected for analysis. LAB NOTE: A second dissection will be run, and a report will be issued when testing is complete. Please see complete report in e-chart or EMR
--- NOTE | 2021-10-02 09:09 | PCM.HP.BLA ---
History and Physical Date of Admission: 10/02/21 [facility] [id number] [place] [address] [phone] OFFICE VISITDate of Service: 09/29/21 MR#:[id number]:[id number]: CLAYTON RATLIFF DAWNRep #:[id number] Provider:Dr. Laura Powers MDAge/Sex: 26/F [facility] Vital Signs 09/29/21 14:40 Height 5 ft 6 in Weight: 198 lb 8 oz BMI 32.0 BP 110/70 Intake Visit Reasons: OB US FU/Discuss D&C Allergies amoxicillin [Amoxicillin] Allergy (Verified 09/29/21 14:38) Hives cephalexin [Cephalexin] Allergy (Verified 09/29/21 14:38) Hives Penicillins Allergy (Verified 09/29/21 14:38) Hives Is last menstrual period known: Yes Last Menstral Period: 06/24/21 [facility] Medical History (Updated 09/30/21 @ 23:[address] Laura Powers MD) Anxiety and depression Asthma Social History household members: significant other Smoking Status: Never smoker alcohol intake: never substance use type: does not use caffeine: Yes frequency: 1-2 times per week seatbelt use: always do you feel safe at home: Yes additional social history: Boyfriend HPI OB US FU/Discuss D&C Details: CLAYTON RATLIFF is a 26 year old who presents for early miscarriage. she has had bleeding for a few days intermittently with some cramping, and then had serial ultrasounds a week apart and there is no yolk sac or pole. she denies any fevers. her partner has a history of several miscarriages with other partners. Female Reproductive History Last Menstral Period: 06/24/21 Menopausal Symptoms: No night sweats Pregancy History 5 Elective abortions Hx Para 5 Spontaneous abortions Hx # Term Pregnancies Ectopic pregnancies Hx # Pregnancies Multiple births # of living children Past Pregnancies Del. Date Name GA/Weeks Outcome Route Bth Weight Gen Labor Lgth Anesthesia Del Locatn Provider FOB Unknown 2011 Yariel live - full term Unknown 2013 Emy live - full term Unknown 2014 Ana live - full term Unknown 2015 Montrell live - full term 08/20/17 Tera Gonsalez live - 4 lbs. 10 oz Male 12 [place] [facility] ROS Const Constitutional: Denies fatigue, night sweats, weight gain or weight loss ENT ENT: Reports system reviewed and no additional complaints, except as documented Cardio Card: Denies chest pain Resp Resp: Denies cough or dyspnea GI GI: Reports as per HPI; Denies abdominal pain, constipation, nausea or vomiting : Denies nipple discharge, urinary frequency, urinary incontinence, urinary hesitancy, urinary urgency, vaginal discharge, vaginal dryness, vaginal odor or vaginal pruritus Musc Musc: Denies arthralgias, back pain or muscle weakness Skin Skin/Breast: Denies alopecia, change in hair, dry skin, breast mass, breast pain, breast skin changes or nipple discharge Neuro Neuro: Reports system reviewed and no additional complaints, except as documented Psych Psych: Reports system reviewed and no additional complaints, except as documented Endo Endo: Denies cold intolerance, excessive sweating, heat intolerance or polydipsia [place]acho/Lymph Hematologic/Lymphatic: Denies easy bleeding, Denies easy bruising and Denies lymphadenopathy Exam Const General: cooperative, healthy appearing, comfortable, no acute distress and well developed Orientation: alert [facility] Head: normal to inspection and normocephalic Ears: hearing grossly normal bilaterally and external ears normal Nose: external nose normal and nares normal Face and sinus: normal facial exam Neck Neck: normal visual inspection and no lymphadenopathy Thyroid: thyroid normal Chest Chest palpation & inspection: normal inspection of the chest Resp Effort & Inspection: normal respiratory effort Cardio Rate: regular rate GI Inspection: normal to inspection and non-distended Palpation: soft and no hepatosplenomegaly Musc Other: gross motor intact no deficits, full bilateral strength Skin General: no rashes or lesions noted Neuro General: patient alert, patient awake, moves all extremities and no focal motor deficits Motor: muscle tone normal throughout Extrem General: normal to inspection and no pedal edema Psych Appearance: grossly normal Mental Status: mental status grossly normal Affect: normal affect Speech and Movement: speech and movement normal Coding Level of Care Code Off vis,est,level 4 Diagnoses Incomplete O03.4 Assessment and Plan Assessment and Plan (1) Incomplete : Status: Acute Comment: proceed with suction d and c, anora due to history of FOB multiple miscarriages Plan - Dr. Laura Powers MD: After discussing the patient's diagnosis and treatment plan options, patient wishes to proceed with surgical management. I have discussed with the patient the risks, benefits, and alternatives of the procedure which include but are not limited to risks of anesthesia, bleeding, infection, possible damage to bowel, bladder, or surrounding vasculature which could lead to additional surgery to evaluate any complications. Patient agrees to procedure and wishes to proceed. ACOG/uptodate references given for additional information regarding procedure. 09/30/21 6070 UPDATE- I have seen the patient and performed any clinically relevant updates to the history and physical exam. Laura Powers MD
[2021-10-02] MEDS: Doxycycline 100 MG CAPSULE PO (11:14)
[2021-10-02] MEDS: Lactated Ringers 1,000 ML 15 ML IV (11:20)
[2021-10-02 11:50] LABS: Absolute Lymphocyte Count 1.59 X10^3/uL (0.83-4.51); Absolute Neutrophil Count 4.8 X10^3/uL (2.0-7.7); Basophil# 0.07 X10^3/uL; Eosinophil# 0.08 X10^3/uL; Eosinophils% 1.1 % (0-5); Hemoglobin 11.8 g/dL (12.0-15.0); Lymphocyte # 1.59 X10^3/ul (0.83-4.51); Lymphocyte % 22.1 % (19-41); Mean Corp Hgb Conc 32.8 g/dL (32-36); Mean Corpuscular Hgb 28.3 pg (27.0-32.0); Mean Corpuscular Volume 86.3 fL (81-99); Mean Platelet Vol. 9.4 fl (6.2-12.0); Monocyte# 0.61 X10^3/uL; Monocyte% 8.5 % (0-10); NRBC Flagged by Analyzer 0 % (0-5); Neutrophil # 4.83 X10^3/uL (2.7-7.7); Platelet Count 288 K/mm3 (150-450); RBC Distribution Width CV 14.6 % (11.6-14.6); RBC Distribution Width SD 46.5 fl (35.1-43.9); Red Blood Count 4.17 M/mm3 (4.2-5.4); White Blood Count 7.2 K/mm3 (4.4-11.0)
[2021-10-02] MEDS: Lubricating Jelly 60 GM Tube 30 GM (12:46)
[2021-10-02] MEDS: Lidocaine 1% (50 ml mdv) 50 ML Vial (12:46)
--- NOTE | 2021-10-02 12:54 | PCM.OPRPT ---
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 She was prepped and draped in the normal sterile fashion the dorsal lithotomy position. Bladder was drained of clear urine and anterior lip of the cervix was grasped and the uterus sounded to 10 cm. Cervix was progressively dilated to allow passage of a 10mm suction curette. Progressive passes were made removing the retained products of conception without complication. Sharp curettage confirmed complete removal of the retained products. All instruments were removed from the vagina and excellent hemostasis was noted and the patient was taken to recovery in stable condition. Grafts/Implants Used: none Complications none Admit VTE Documentation VTE Present on Admission: No VTE Mechan Device Prophylaxis: SCD's Procedures Urinary/Genital [id number]: 10582 Trmt of incomplete Ab, any TM
--- NOTE | 2021-10-02 12:55 | EX.PCM.DISCH ---
Discharge Instructions Procedure D&C Diet Discharge Diet: No restrictions Activity Discharge Activity: Return to Normal Activity, May Shower and May Take a Tub Bath (after 1 week) May resume sexual activity in: 1-2 weeks Weight Bearing Status: Weight bearing as tolerated Lifting Restrictions: none Dressing / Incision Call your doctor if you observe: Fever of 101 or Higher, Using more than 1 pad per hour, Shortness of breath and Uncontrolled pain Follow Up Care Please Follow Up With: Laura Powers MD When: Call [phone] to schedule appointment. Test Results: Test results from this visit will be discussed in further detail at your follow-up appointment, if applicable. Discharge Plan Admission Attending Provider: Laura Powers Primary Care Provider: Care Physician,Racheal Primary Discharge Orders/Prescriptions Prescriptions: No Action trazodone 100 mg tablet 50 - 300 mg PO QHS PRN (Reason: Sleep) RF: 0 albuterol sulfate 90 mcg/actuation HFA aerosol inhaler 2 puff INHALATION Q4H PRN PRN (Reason: Shortness Of Breath) RF: 0 duloxetine 60 mg capsule,delayed release(DR/EC) 120 mg PO DAILY RF: 0 Referrals / Follow Up: Care Physician,No Primary [Primary Care Provider] - Disposition Disposition (needs filled in before D/C Order can be placed): Home, Self Care
[2021-10-12 07:11] LABS: Pathology Specimen OB SEE PATHOLOGY REPORT
== END 2021-10-02 23:59 | disposition home or self-care (01) ==
LOC: SDC 10:32 → AC 10:33
PROVIDERS: Referring Provider Obstetrics & Gynecology; Visit Provider Obstetrics & Gynecology
PROC: (CPT 59812; principal; 2021-10-02 11:45)
DX: O03.4 Incomplete spontaneous abortion without complication (principal)
CPT/HCPCS: 59812; 01965; 85025; 86850; 86900; 86901; 87811; 88305; J7120; J2405

== ENCOUNTER → 2025-03-01 | Outpatient (CLI) | payer MEDICAID, SELFPAY ==
[2025-03-03 21:08] LABS: Chlamydia By Nucleic Acid AMP Negative (Negative); Gonococcus By Nucleic Acid AMP Negative (Negative)
[2025-03-04 16:09] LABS: HPV APTIMA, High Risk Negative (Negative)
== END | disposition home or self-care (01) ==
PROVIDERS: Referring Provider Nurse Practitioner Family; Visit Provider Nurse Practitioner Family
DX: N89.8 Other specified noninflammatory disorders of vagina (principal); Z11.3 Encounter for screening for infections with a predominantly sexual mode of transmission
CPT/HCPCS: 87070; 87205; 87491; 87591; 87624; 88175; G0145

== ENCOUNTER → 2025-03-03 | Outpatient (CLI) | payer MEDICAID, SELFPAY ==
[2025-03-03 14:14] LABS: HIV Nonreactive (Nonreactive); Hepatitis B Surface Antigen Nonreactive (Nonreactive); Syphilis Antibodies Nonreactive (Nonreactive)
[2025-03-04 16:09] LABS: HCV Quant. RNA PCR HCV Not Detected IU/mL (.)
== END | disposition home or self-care (01) ==
PROVIDERS: Referring Provider Nurse Practitioner Family; Visit Provider Nurse Practitioner Family
DX: Z11.3 Encounter for screening for infections with a predominantly sexual mode of transmission (principal)
CPT/HCPCS: 36415; 86703; 86780; 87340; 87522